=== PATIENT | male | born 1965 | race African-American/Black ===

== ENCOUNTER 2017-10-01 20:50 | Emergency (ER) | payer OTHER ==
[~2017-10-01] VITALS: Ht 172.7 cm; Wt 74.8 kg
[~2017-10-01 20:50] MED LIST: CARBAMAZEPINE200 MG ORAL; KEFLEX500 MG ORAL; NKM; PREDNISONE20 MG ORAL; TRAMADOL HCL50 MG ORAL
[2017-10-01 21:25] VITALS: BP 119/79
[2017-10-01] MEDS ORDERED: IBUPROFEN600 MG ORAL (21:29)
[2017-10-01] MEDS ORDERED: HYDROCODON-ACE1 EA15 ORAL (21:29)
--- NOTE | 2017-10-01 21:29 | Emergency Room Report ---
History of Present Illness General Chief Complaint: Upper Extremity Injury Source: Patient Present Illness HPI Is a 52-year-old male who is right-hand dominant. He presents with chief complaint of right thumb pain. He works as a hairdresser. He was working out yesterday and as he was fine. He went to sleep and woke up with right thumb pain. Unknown trauma. Pain is localized to the ulnar aspect of the DIP joint. Unable to bend the thumb. No fever or chills. No drainage. Worse with palpation. Pain is 8/10. Allergies: Coded Allergies: No Known Allergies (Unverified , 02/20/14) Patient History Past Medical History: see triage record, old chart reviewed Past Surgical History: other Pertinent Family History: none Social History: Denies: smoking Immunizations: other Reviewed Nursing Documentation: PMH: Agreed, PSxH: Agreed Nursing Documentation-PMH Past Medical History: No Stated History Review of Systems Eye: Denies: eye pain, blurred vision ENT: Denies: ear pain, nose congestion, throat swelling Respiratory: Denies: cough, shortness of breath Cardiovascular: Denies: chest pain, palpitations Gastrointestinal: Denies: abdominal pain, diarrhea, nausea, vomiting Musculoskeletal: Reports: joint pain, Denies: back pain Skin: Denies: rash Neurological: Denies: headache, numbness Endocrine: Denies: increased thirst, increased urine Hematologic/Lymphatic: Denies: easy bruising All Other Systems: negative except mentioned in HPI Physical Exam Vital Signs Date Time Temp Pulse Resp B/P (MAP) Pulse Ox O2 Delivery O2 Flow Rate FiO2 10/01/17 20:52 97.7 60 20 119/79 98 Room Air 97.7 vitals normal Sp02 EP Interpretation: reviewed, normal General Appearance: well appearing, no apparent distress, alert Head: normocephalic, atraumatic Eyes: bilateral eye PERRL, bilateral eye EOMI ENT: hearing grossly normal, normal pharynx Neck: full range of motion, supple, no meningismus Respiratory: chest non-tender, lungs clear, normal breath sounds Cardiovascular #1: regular rate, rhythm, no murmur Gastrointestinal: normal bowel sounds, non tender, no mass, no organomegaly, no bruit, non-distended Musculoskeletal: back normal, gait/station normal, normal range of motion, other - Right thumb: There is edema and tenderness to the ulnar aspect of the PIP joint. There is no evidence of paronychia. No redness. Tender to palpation. Decreased range of motion. MCP joint is nontender full range of motion. Neurologic: alert, oriented x3, responsive Psychiatric: mood/affect normal Skin: warm/dry Procedures Splinting Splinting : Consent: Verbal Location: Right thumb Splint: thumb spica Pre-Proc Neuro Vasc Exam: normal Post-Proc Neuro Vasc Exam: normal Patient Tolerated: Well Complications: None Medical Decision Making Diagnostic Impression: Primary Impression: Closed fracture of sesamoid bone of hand Qualified Codes: S62.101A - Fracture of unspecified carpal bone, right wrist, initial encounter for closed fracture ER Course Patient with a sesamoid bone fracture of the right thumb. Probably from a crush injury from weights during lifting. No evidence of infection. No evidence of septic joint. Thumb splinted and discharged. Other X-Ray Diagnostic Results Other X-Ray Diagnostic Results : X-Ray ordered: Right thumb x-rays # of Views/Limited Vs Complete: 3 View Indication: Pain EP Interpretation: Yes Interpretation: no dislocation, other - STS. sesmoid bone frx Impression: Other - sesmoid bone frx Electronically Signed by: Fawad Nicole MD Last Vital Signs Date Time Temp Pulse Resp B/P (MAP) Pulse Ox O2 Delivery O2 Flow Rate FiO2 10/01/17 20:52 97.7 60 20 119/79 98 Room Air 97.7 Status: improved Disposition: HOME, SELF-CARE Condition: Stable Scripts Ibuprofen* (MOTRIN*) 600 Mg Tablet 600 MG ORAL THREE TIMES A DAY, #30 TAB 0 Refills Prov: FAWAD NICOLE M.D. 10/01/17 Hydrocodone/Acetaminophen 5-325* (HYDROCODONE/ACETAMINOPHEN 5-325*) 1 Each Tablet 1 TAB ORAL Q6H Y for For Pain, #20 TAB 0 Refills Prov: FAWAD NICOLE M.D. 10/01/17 Referrals: NOT CHOSEN BUD/,REFERRING (PCP) Additional Instructions: Followup with your DrPeterson in 7 days. Ice pack to the area. Return if symptom worsen. FAWAD NICOLE M.D. Oct 01, 2017 21:29
[2017-10-01 21:39] VITALS: BP 119/79
--- NOTE | 2017-10-02 08:45 | Diagnostic Imaging Report ---
Indication: Pain and swelling of the thumb Technique: XRAY Fingers 2-3v R Comparison: None. Findings: Soft tissue swelling is noted. There is amorphous calcification on the palmar side at the base of the distal phalanx. No fracture. No evidence of bone destruction. Impression: Amorphous calcification at the distal interphalangeal joint of the thumb. Soft tissue swelling is also present. Etiology is unclear but could be related to either calcific tendinitis or calcium pyrophosphate deposition disease. Dr. Melgoza was notified by phone 10/02/2017 at 8:45 AM
== END 2017-10-01 21:41 | disposition home or self-care (01) ==
LOC: EMR 21:13
DX: M65.241 Calcific tendinitis, right hand (principal)
CPT/HCPCS: 29260; 99284